=== PATIENT | male | born 1955 | race Two or more races ===

== ENCOUNTER → 2024-02-24 | Emergency (ER) | payer OTHER ==
[~2024-02-24] VITALS: Ht 182.9 cm; Wt 87.1 kg
[~2024-02-24] MED LIST: GLYXAMBI 10 MG1 EACH; ISOSORBIDE DINI30 MG; PRILOSEC10 MG; SPIRONOLACTONE50 MG
[2024-02-24 19:38] LABS: HEMATOCRIT 42.2 % (39.0-48.0); HEMOGLOBIN 14.6 g/dL (13-16.00); MEAN CELL VOLUME 87.3 fL (80.0-100.00); MEAN CORPUSCULAR HEMOGLOBIN 30.3 pg (27.00-32.0); MEAN CORPUSCULAR HGB CONC 34.7 g/dl (32.0-36.0); RED BLOOD COUNT 4.83 M/uL (4.00-6.00)
[2024-02-24 19:40] LABS: PLATELET COUNT 44 K/uL (150-450)
[2024-02-24 19:53] LABS: INR 1.22; PARTIAL THROMBOPLASTIN TIME 31.2 SECONDS (22.0-34.0); PROTHROMBIN TIME 13.1 SECONDS (9.0-11.5)
[2024-02-24 19:59] LABS: ALBUMIN 3.3 gm/dL (3.4-5.0); BILIRUBIN TOTAL 1.99 mg/dL (0.3-1.2); BILIRUBIN,CONJUGATED 0.64 mg/dL (0.0-0.2); BILIRUBIN,UNCONJUGATED 1.35 mg/dL (0.0-0.6); CREATININE SERUM 0.97 mg/dL (0.70-1.30); GFR 76.51; POTASSIUM 3.75 mEq/L (3.5-5.1); TOTAL PROTEIN 6.3 gm/dL (6.4-8.2)
[2024-02-24 20:22] LABS: PH,URINE 5.5 (5.0-8.0); URINE APPEARANCE Clear; URINE BILIRRUBIN Negative (NEGATIVE); URINE BLOOD Negative; URINE COLOR Yellow; URINE LEUKOCYTE Negative; URINE NITRATE Negative; URINE PROTEIN Negative (NEGATIVE)
[2024-02-24 20:25] LABS: URINE RBC 3.3 uL (0.0-20.8)
[2024-02-24 20:37] LABS: URINE EPITHELIAL CELLS 0.9 uL (0.0-38.8); URINE GLUCOSE >=1000 MG/DL (NEGATIVE); URINE KETONE 40 (NEGATIVE); URINE WBC 1.4 uL (0.0-23.2)
[2024-02-25 07:00] VITALS: BP 131/78; O2SAT 100
== END | disposition designated cancer center or children's hospital (05) ==
LOC: ER 17:30
PROVIDERS: General Practice
DX: R14.0 Abdominal distension (gaseous) (principal); R60.0 Localized edema; Z87.19 Personal history of other diseases of the digestive system; I10 Essential (primary) hypertension; E11.9 Type 2 diabetes mellitus without complications